=== PATIENT | male | born 1990 | race Two or more races ===

== ENCOUNTER 2021-11-06 21:13 | Emergency (ER) | payer SELFPAY ==
[~2021-11-06] VITALS: Ht 170.2 cm; Wt 70.3 kg
[2021-11-06 22:29] LABS: CREATININE 1.1 mg/dL (0.6-1.3); POTASSIUM 4.2 mmol/L (3.5-5.1)
[2021-11-06 22:38] LABS: HEMATOCRIT 45.3 % (36.7-47.1); MEAN CORPUSCULAR HEMOGLOBIN 30.5 uug (23.8-33.4); MEAN CORPUSCULAR VOLUME 89.9 fL (73.0-96.2); PLATELET COUNT (AUTO) 173 K/uL (152-348)
[2021-11-06 22:43] LABS: BILIRUBIN,DIRECT 0.1 mg/dL (0.0-0.2); BILIRUBIN,TOTAL 0.7 mg/dL (0.2-1.0); TOTAL PROTEIN, SERUM 7.5 g/dL (6.4-8.2)
[2021-11-06 23:04] LABS: *BILIRUBIN,URIN NEGATIVE (NEGATIVE); *BLOOD, URINE NEGATIVE (NEGATIVE); *CLARITY,URINE CLEAR (CLEAR); *COLOR,URINE YELLOW (YELLOW); *KETONES,URINE TRACE (NEGATIVE); *UROBILINOGEN,URINE 0.2 E.U./dl (NORMAL); LEUKOCYTE ESTERASE ,URINE NEGATIVE (NEGATIVE); NITRITE, URINE NEGATIVE (NEGATIVE); UGLUCOSE NEGATIVE (NEGATIVE)
--- NOTE | 2021-11-07 01:10 | NUR ---
Dr. Cabrera at bedside. MSE in progress.
--- NOTE | 2021-11-07 01:30 | NUR ---
Patient going downstairs for CT.
[2021-11-07 01:38] LABS: *OCCULT BLOOD STOOL NEGATIVE (NEGATIVE)
[2021-11-07] MEDS ORDERED: FLEET ENEMA 133 ML BOTTLE RC ONE ×2 (03:03→03:30)
--- NOTE | 2021-11-07 03:11 | NUR ---
Patient discharged to home in stable condition. A/O x4. NAD noted. Ambulatory with steady gait. Written and verbal after care instructions given. Patient verbalizes understanding of instructions. Stressed follow up or return to ER for worsening s/s.
[2021-11-07 03:20] VITALS: BP 120/79
== END 2021-11-07 03:11 | disposition home or self-care (01) ==
LOC: ER 21:17
DX: R10.84 Generalized abdominal pain (principal)
CPT/HCPCS: 36415; 83690; 85025